=== PATIENT | female | born 1960 | race African-American/Black ===

== ENCOUNTER 2019-08-01 06:25 | Inpatient (IN) | payer MEDICAID ==
[~2019-08-01] VITALS: Ht 167.6 cm; Wt 70.8 kg
[~2019-08-01 06:25] MED LIST: ACT35 PO; ATOR10TA69 PO; DIVAL250 PO; FAMO20TA8 PO; MIRT15TA6 PO; PHEN100C12 PO
[2019-08-01] MEDS ORDERED: ACETAMINOPHEN 650MG SUPP PR STA (06:29)
[2019-08-01] MEDS ORDERED: SODIUM CHLORIDE 0.9% 500 ML IV ONE (06:47)
[2019-08-01] MEDS ORDERED: LEVOFLOXACIN 500MG PREMIX 100 ML IV ONE (07:00)
[2019-08-01 07:52] LABS: BASOPHILS % 0.3 % (0.0-2.0); EOSINOPHILS % 1.7 % (0.0-5.0); HEMATOCRIT. 33.9 % (36.0-48.0); HEMOGLOBIN. 10.9 g/dL (12.0-16.0); LYMPHOCYTES % 16.4 % (20.0-50.0); MEAN CORPUSCULAR HEMOGLOBIN 28.7 pg (28.0-32.0); MEAN CORPUSCULAR VOLUME 89.1 fL (81.0-99.0); MEAN PLATELET VOLUME 9.3 fl (7.4-10.4); MONOCYTES % 8.2 % (2.0-8.0); NEUTROPHILS % 73.4 % (40.0-76.0); PLATELET 456 x1000/uL (130-400); RED CELL DISTRIBUTION WIDTH 15.2 % (11.6-14.6)
[2019-08-01 07:58] LABS: CHLORIDE 135 mEq/L (98-107)
[2019-08-01 08:07] LABS: CREATINE KINASE 104 IU/L (26-192)
[2019-08-01 08:11] LABS: VALPROIC ACID < 3.0 ug/mL (50-100)
[2019-08-01 08:12] LABS: D-DIMER 21.77 mg/L FEU (<0.50); PROTHROMBIN TIME 10.8 sec (9.6-11.0)
[2019-08-01] MEDS ORDERED: PHENYTOIN SODIUM 1,000 MG in SODIUM CHLORIDE 0.9% 100 ML IV ONE (08:45)
[2019-08-01] MEDS ORDERED: CEFTRIAXONE 1 G PREMIX 50 ML IV NR (12:17)
[2019-08-01] MEDS ORDERED: AZITHROMYCIN 500 MG TABLET PO SCH (12:22)
[2019-08-01 12:31] LABS: HEPATITIS B SURFACE ANTIGEN NEGATIVE
[2019-08-01 13:01] LABS: HEPATITIS A AB IGM NEGATIVE (NEGATIVE)
[2019-08-01] MEDS: DEXTROSE 5% WATER 1,000 ML IV SCH ×2 (13:17→20:06)
[2019-08-01 13:53] LABS: CLARITY URINE CLEAR (CLEAR); COLOR URINE YELLOW (YELLOW); KETONES URINE NEGATIVE (NEGATIVE); LEUKOCYTE ESTERASE URINE 1+ (NEGATIVE); NITRITE URINE POSITIVE (NEGATIVE); OCCULT BLOOD URINE 2+ (NEGATIVE); PROTEIN URINE 1+ (NEGATIVE); SPECIFIC GRAVITY URINE 1.027 (1.005-1.030)
[2019-08-01 14:00] VITALS: BP 130/66
[2019-08-01 16:00] VITALS: BP 122/65
[2019-08-01] MEDS ORDERED: MOM PO (16:10)
[2019-08-01] MEDS ORDERED: RISP0.5T19 MT (16:10)
[2019-08-01] MEDS ORDERED: ALEN70TA68 MT (16:10)
[2019-08-01] MEDS ORDERED: AZITHROMYCIN 500 MG TABLET PO NR (17:00)
[2019-08-01] MEDS: ENOXAPARIN 60MG/0.6ML SYR SUBCUT SCH (18:11)
[2019-08-01 20:00] VITALS: BP 110/68
[2019-08-02] VITALS (7 sets, daily range): BP systolic 109–128; BP diastolic 60–73
[2019-08-02] MEDS: DEXTROSE 5% WATER 1,000 ML IV SCH ×3 (05:03→21:23)
[2019-08-02] MEDS: ENOXAPARIN 60MG/0.6ML SYR SUBCUT SCH ×2 (05:04→15:44)
[2019-08-02 06:39] LABS: HEMATOCRIT. 35.8 % (36.0-48.0); HEMOGLOBIN. 11.7 g/dL (12.0-16.0); MEAN CORPUSCULAR VOLUME 88.8 fL (81.0-99.0); RED BLOOD CELL COUNT 4.03 mill/uL (4.2-5.4)
[2019-08-02 06:40] LABS: BASOPHILS % 0.6 % (0.0-2.0); EOSINOPHILS % 3.3 % (0.0-5.0); LYMPHOCYTES % 12.3 % (20.0-50.0); MEAN PLATELET VOLUME 8.8 fl (7.4-10.4); MONOCYTES % 7.3 % (2.0-8.0); NEUTROPHILS % 76.5 % (40.0-76.0); PLATELET 443 x1000/uL (130-400); RED CELL DISTRIBUTION WIDTH 15.4 % (11.6-14.6)
[2019-08-02 07:18] LABS: CHLORIDE 128 mEq/L (98-107)
[2019-08-02 07:28] LABS: PHOSPHORUS 2.8 mg/dL (2.5-4.9)
[2019-08-02 07:30] LABS: CREATINE KINASE 132 IU/L (26-192)
[2019-08-02] MEDS ORDERED: CEFTRIAXONE 1 G PREMIX 50 ML IV SCH (09:00)
[2019-08-02] MEDS ORDERED: VANCOMYCIN 1250MG in DEXTROSE 5% WATER 250ML IV SCH (12:00)
[2019-08-02] MEDS ORDERED: MULT-1116 PO (14:18)
[2019-08-02] MEDS ORDERED: RISP0.5T19 MT ×2 (14:18→14:23)
[2019-08-02] MEDS ORDERED: ALEN70TA68 MT (14:23)
[2019-08-02] MEDS ORDERED: CA C-1 MT (14:23)
[2019-08-02] MEDS ORDERED: MOM MT (14:23)
[2019-08-02] MEDS ORDERED: ATOR10TA69 PO (14:23)
[2019-08-02] MEDS ORDERED: FAMO20TA8 PO (14:23)
[2019-08-02] MEDS ORDERED: KEPP500 MT (14:23)
[2019-08-02] MEDS ORDERED: LEVETIRACETAM 500MG TABLET PO SCH (15:00)
[2019-08-02] MEDS: RISPERIDONE 0.5MG TABLET GT SCH (15:45)
[2019-08-02] MEDS: AZITHROMYCIN 250 MG TABLET PO SCH (15:45)
[2019-08-02] MEDS: LEVETIRACETAM 500MG/5ML CUP PO SCH ×2 (15:45→21:20)
[2019-08-02] MEDS ORDERED: RISPERIDONE 0.5MG TABLET GT SCH (17:00)
[2019-08-02] MEDS: VANCOMYCIN 750 MG PREMIX 150 ML IV SCH (21:19)
[2019-08-02] MEDS: MAGNESIUM HYDROXIDE 400MG/5ML 30ML UDC GT SCH (21:19)
[2019-08-02] MEDS: FAMOTIDINE 20MG TABLET PO SCH (21:20)
[2019-08-02] MEDS: ATORVASTATIN CALCIUM 10MG TABLET PO SCH (21:21)
[2019-08-02] MEDS: ACETAMINOPHEN 325MG TABLET PO PRN (22:21)
[2019-08-03] VITALS: BP 143/65
[2019-08-03 04:00] VITALS: BP 120/63
[2019-08-03] MEDS: DEXTROSE 5% WATER 1,000 ML IV SCH (05:27)
[2019-08-03] MEDS: VANCOMYCIN 750 MG PREMIX 150 ML IV SCH ×2 (05:58→15:44)
[2019-08-03] MEDS: ENOXAPARIN 60MG/0.6ML SYR SUBCUT SCH ×2 (05:59→18:30)
[2019-08-03 07:54] LABS: BASOPHILS % 0.4 % (0.0-2.0); EOSINOPHILS % 1.7 % (0.0-5.0); HEMATOCRIT. 34.5 % (36.0-48.0); HEMOGLOBIN. 11.4 g/dL (12.0-16.0); LYMPHOCYTES % 15.2 % (20.0-50.0); MEAN CORPUSCULAR VOLUME 87.8 fL (81.0-99.0); MEAN PLATELET VOLUME 9.4 fl (7.4-10.4); MONOCYTES % 5.7 % (2.0-8.0); PLATELET 416 x1000/uL (130-400); RED BLOOD CELL COUNT 3.93 mill/uL (4.2-5.4); RED CELL DISTRIBUTION WIDTH 14.7 % (11.6-14.6)
[2019-08-03 08:00] VITALS: BP 114/77
[2019-08-03 08:00] LABS: CHLORIDE 115 mEq/L (98-107)
[2019-08-03 08:05] LABS: PHOSPHORUS 2.3 mg/dL (2.5-4.9)
[2019-08-03] MEDS: RISPERIDONE 0.5MG TABLET GT SCH (11:13)
[2019-08-03] MEDS: LEVETIRACETAM 500MG/5ML CUP PO SCH ×2 (11:13→22:18)
[2019-08-03] MEDS: CEFTRIAXONE 1 G PREMIX 50 ML IV SCH (11:14)
[2019-08-03] MEDS: AZITHROMYCIN 250 MG TABLET PO SCH (11:14)
[2019-08-03 12:00] VITALS: BP 117/65
[2019-08-03] MEDS ORDERED: POTASSIUM PHOS,M-BASIC-D-BASIC 20 MMOL in DEXT 5% WATER 243.3333 ML IV NR (15:00)
[2019-08-03 16:00] VITALS: BP 111/65
[2019-08-03 20:00] VITALS: BP 100/75
[2019-08-03] MEDS: MAGNESIUM HYDROXIDE 400MG/5ML 30ML UDC GT SCH (22:18)
[2019-08-03] MEDS: ATORVASTATIN CALCIUM 10MG TABLET PO SCH (22:18)
[2019-08-03] MEDS: FAMOTIDINE 20MG TABLET PO SCH (22:18)
[2019-08-04] VITALS: BP 119/68
[2019-08-04 04:00] VITALS: BP 121/75
[2019-08-04] MEDS: DEXTROSE 5% WATER 1,000 ML IV SCH ×2 (05:39→16:11)
[2019-08-04] MEDS: ENOXAPARIN 60MG/0.6ML SYR SUBCUT SCH ×2 (05:40→17:17)
[2019-08-04 08:00] VITALS: BP 141/81
[2019-08-04] MEDS: CEFTRIAXONE 1 G PREMIX 50 ML IV SCH (10:33)
[2019-08-04] MEDS: AZITHROMYCIN 250 MG TABLET PO SCH (10:33)
[2019-08-04] MEDS: RISPERIDONE 0.5MG TABLET GT SCH (10:33)
[2019-08-04] MEDS: LEVETIRACETAM 500MG/5ML CUP PO SCH ×2 (10:33→21:13)
[2019-08-04 12:00] VITALS: BP 100/58
[2019-08-04 12:15] LABS: BASOPHILS % 0.2 % (0.0-2.0); EOSINOPHILS % 1.6 % (0.0-5.0); HEMATOCRIT. 35.6 % (36.0-48.0); HEMOGLOBIN. 11.9 g/dL (12.0-16.0); LYMPHOCYTES % 10.5 % (20.0-50.0); MEAN CORPUSCULAR HEMOGLOBIN 29.4 pg (28.0-32.0); MEAN CORPUSCULAR VOLUME 88.2 fL (81.0-99.0); MEAN PLATELET VOLUME 9.6 fl (7.4-10.4); MONOCYTES % 4.3 % (2.0-8.0); NEUTROPHILS % 83.4 % (40.0-76.0); PLATELET 368 x1000/uL (130-400); RED BLOOD CELL COUNT 4.04 mill/uL (4.2-5.4); RED CELL DISTRIBUTION WIDTH 14.4 % (11.6-14.6)
[2019-08-04 13:52] LABS: CHLORIDE 111 mEq/L (98-107)
[2019-08-04 14:01] LABS: PHOSPHORUS 2.6 mg/dL (2.5-4.9)
[2019-08-04 16:00] VITALS: BP 141/61
[2019-08-04] MEDS ORDERED: POTASSIUM CHLORIDE 20MEQ TABLET SR PO NR (16:55)
[2019-08-04] MEDS ORDERED: VANCOMYCIN 1,000 MG in DEXT 5% WATER 250 ML IV NR (18:30)
[2019-08-04 20:00] VITALS: BP 121/77
[2019-08-04] MEDS: ATORVASTATIN CALCIUM 10MG TABLET PO SCH (21:13)
[2019-08-04] MEDS: FAMOTIDINE 20MG TABLET PO SCH (21:13)
[2019-08-04] MEDS: MAGNESIUM HYDROXIDE 400MG/5ML 30ML UDC GT SCH (21:13)
[2019-08-05] VITALS: BP 123/55
[2019-08-05] MEDS ORDERED: VANCOMYCIN 750 MG in DEXT 5% WATER 250 ML IV SCH (03:00)
[2019-08-05 04:00] VITALS: BP 112/69
[2019-08-05] MEDS: DEXTROSE 5% WATER 1,000 ML IV SCH ×2 (05:31→17:20)
[2019-08-05] MEDS: ENOXAPARIN 60MG/0.6ML SYR SUBCUT SCH ×2 (05:37→17:20)
[2019-08-05 08:00] VITALS: BP 112/68
[2019-08-05] MEDS: LEVETIRACETAM 500MG/5ML CUP PO SCH ×2 (09:19→21:25)
[2019-08-05] MEDS: AZITHROMYCIN 250 MG TABLET PO SCH (09:19)
[2019-08-05] MEDS: RISPERIDONE 0.5MG TABLET GT SCH (09:19)
[2019-08-05] MEDS: CEFTRIAXONE 1 G PREMIX 50 ML IV SCH (09:19)
[2019-08-05] MEDS ORDERED: VANCOMYCIN 750 MG PREMIX 150 ML IV SCH (11:00)
[2019-08-05 12:00] VITALS: BP 105/50
[2019-08-05 16:00] VITALS: BP 102/62
[2019-08-05 20:00] VITALS: BP 112/63
[2019-08-05] MEDS: MAGNESIUM HYDROXIDE 400MG/5ML 30ML UDC GT SCH (21:25)
[2019-08-05] MEDS: FAMOTIDINE 20MG TABLET PO SCH (21:25)
[2019-08-05] MEDS: ATORVASTATIN CALCIUM 10MG TABLET PO SCH (21:25)
[2019-08-06] VITALS: BP 134/68
[2019-08-06] MEDS: ACETAMINOPHEN 325MG TABLET PO PRN ×2 (01:09→22:36)
[2019-08-06 04:00] VITALS: BP 113/71
[2019-08-06] MEDS: ENOXAPARIN 60MG/0.6ML SYR SUBCUT SCH (06:16)
[2019-08-06 08:11] VITALS: BP 138/66
[2019-08-06] MEDS: RISPERIDONE 0.5MG TABLET GT SCH (08:13)
[2019-08-06] MEDS: LEVETIRACETAM 500MG/5ML CUP PO SCH ×2 (08:13→21:50)
[2019-08-06 12:02] VITALS: BP 123/70
[2019-08-06] MEDS: DEXTROSE 5% WATER 1,000 ML IV SCH ×2 (13:52→21:51)
[2019-08-06 16:16] VITALS: BP 118/63
[2019-08-06] MEDS: ENOXAPARIN 80MG/0.8ML SYR SUBCUT SCH (17:44)
[2019-08-06 20:00] VITALS: BP 123/59
[2019-08-06] MEDS: FAMOTIDINE 20MG TABLET PO SCH (21:50)
[2019-08-06] MEDS: MAGNESIUM HYDROXIDE 400MG/5ML 30ML UDC GT SCH (21:50)
[2019-08-06] MEDS: ATORVASTATIN CALCIUM 10MG TABLET PO SCH (21:50)
[2019-08-07] VITALS: BP 125/75
[2019-08-07 04:00] VITALS: BP 127/79
[2019-08-07 08:05] VITALS: BP 130/64
[2019-08-07] MEDS: RISPERIDONE 0.5MG TABLET GT SCH (08:15)
[2019-08-07] MEDS: LEVETIRACETAM 500MG/5ML CUP PO SCH ×2 (08:15→20:38)
[2019-08-07] MEDS: ENOXAPARIN 80MG/0.8ML SYR SUBCUT SCH ×2 (08:16→20:39)
[2019-08-07 12:00] VITALS: BP 132/61
[2019-08-07 16:20] VITALS: BP 126/74
[2019-08-07] MEDS: DEXTROSE 5% WATER 1,000 ML IV SCH (16:46)
[2019-08-07 18:07] LABS: HEMATOCRIT. 32.1 % (36.0-48.0); HEMOGLOBIN. 10.5 g/dL (12.0-16.0); MEAN CORPUSCULAR HEMOGLOBIN 28.8 pg (28.0-32.0); MEAN CORPUSCULAR VOLUME 87.9 fL (81.0-99.0); MEAN PLATELET VOLUME 8.6 fl (7.4-10.4); PLATELET 606 x1000/uL (130-400); RED BLOOD CELL COUNT 3.65 mill/uL (4.2-5.4); RED CELL DISTRIBUTION WIDTH 14.9 % (11.6-14.6)
[2019-08-07 18:11] LABS: CHLORIDE 101 mEq/L (98-107)
[2019-08-07 18:28] LABS: PLATELET ESTIMATE INCREASED
[2019-08-07 20:00] VITALS: BP 120/68
[2019-08-07] MEDS: MAGNESIUM HYDROXIDE 400MG/5ML 30ML UDC GT SCH (20:38)
[2019-08-07] MEDS: ATORVASTATIN CALCIUM 10MG TABLET PO SCH (20:38)
[2019-08-07] MEDS: FAMOTIDINE 20MG TABLET PO SCH (20:38)
[2019-08-08] VITALS: BP 119/69
[2019-08-08] MEDS: DEXTROSE 5% WATER 1,000 ML IV SCH (00:11)
[2019-08-08 04:00] VITALS: BP 117/62
[2019-08-08] MEDS: ACETAMINOPHEN 325MG TABLET PO PRN (05:04)
[2019-08-08 08:00] VITALS: BP 129/75
[2019-08-08] MEDS: ENOXAPARIN 80MG/0.8ML SYR SUBCUT SCH ×2 (09:36→21:59)
[2019-08-08] MEDS: RISPERIDONE 0.5MG TABLET GT SCH (09:36)
[2019-08-08] MEDS: LEVETIRACETAM 500MG/5ML CUP PO SCH ×2 (09:36→21:59)
[2019-08-08 12:00] VITALS: BP 139/87
[2019-08-08] MEDS: PIPERACILLIN/TAZOBACTAM 3.375 G in DEXT 5% WATER 100 ML IV SCH ×2 (14:33→21:59)
[2019-08-08 16:00] VITALS: BP 110/57
[2019-08-08 20:00] VITALS: BP 124/74
[2019-08-08] MEDS: FAMOTIDINE 20MG TABLET PO SCH (21:59)
[2019-08-08] MEDS: ATORVASTATIN CALCIUM 10MG TABLET PO SCH (21:59)
[2019-08-08] MEDS: MAGNESIUM HYDROXIDE 400MG/5ML 30ML UDC GT SCH (21:59)
[2019-08-09] VITALS: BP 129/71
[2019-08-09 04:00] VITALS: BP 126/63
[2019-08-09] MEDS: PIPERACILLIN/TAZOBACTAM 3.375 G in DEXT 5% WATER 100 ML IV SCH ×4 (05:36→20:50)
[2019-08-09 08:00] VITALS: BP 128/67
[2019-08-09] MEDS: LEVETIRACETAM 500MG/5ML CUP PO SCH ×2 (08:53→21:28)
[2019-08-09] MEDS: RISPERIDONE 0.5MG TABLET GT SCH (08:53)
[2019-08-09] MEDS: ENOXAPARIN 80MG/0.8ML SYR SUBCUT SCH ×2 (08:53→21:30)
[2019-08-09] MEDS ORDERED: FUROSEMIDE 40MG/4ML VIAL IVP SCH (11:00)
[2019-08-09] MEDS: METHYLPREDNISOLONE SOD SUCC 40 MG/ML VIAL IV SCH ×2 (11:12→21:28)
[2019-08-09 12:00] VITALS: BP 135/81
[2019-08-09] MEDS: ALBUTEROL 6.7GM HFA INHALER ORI SCH ×2 (12:42→17:42)
[2019-08-09 16:00] VITALS: BP 108/65
[2019-08-09 20:00] VITALS: BP_SYST 115; BP_SYST 118; BP_DIAS 66; BP_DIAS 73
[2019-08-09] MEDS: FAMOTIDINE 20MG TABLET PO SCH (21:28)
[2019-08-09] MEDS: MAGNESIUM HYDROXIDE 400MG/5ML 30ML UDC GT SCH (21:28)
[2019-08-09] MEDS: ATORVASTATIN CALCIUM 10MG TABLET PO SCH (21:28)
[2019-08-10] VITALS: BP 115/65
[2019-08-10] MEDS: ALBUTEROL 6.7GM HFA INHALER ORI SCH ×4 (00:47→18:02)
[2019-08-10 04:00] VITALS: BP 124/65
[2019-08-10 04:43] LABS: CHLORIDE 100 mEq/L (98-107)
[2019-08-10 05:03] LABS: BASOPHILS % 0.1 % (0.0-2.0); EOSINOPHILS % 0.2 % (0.0-5.0); HEMOGLOBIN. 9.9 g/dL (12.0-16.0); LYMPHOCYTES % 7.4 % (20.0-50.0); MEAN CORPUSCULAR HEMOGLOBIN 28.7 pg (28.0-32.0); MEAN CORPUSCULAR VOLUME 87.1 fL (81.0-99.0); MEAN PLATELET VOLUME 8.8 fl (7.4-10.4); MONOCYTES % 4.7 % (2.0-8.0); NEUTROPHILS % 87.6 % (40.0-76.0); PLATELET 745 x1000/uL (130-400); RED BLOOD CELL COUNT 3.44 mill/uL (4.2-5.4); RED CELL DISTRIBUTION WIDTH 14.5 % (11.6-14.6)
[2019-08-10] MEDS: PIPERACILLIN/TAZOBACTAM 3.375 G in DEXT 5% WATER 100 ML IV SCH ×4 (06:13→21:15)
[2019-08-10 08:00] VITALS: BP 117/71
[2019-08-10] MEDS: METHYLPREDNISOLONE SOD SUCC 40 MG/ML VIAL IV SCH ×2 (09:00→21:14)
[2019-08-10] MEDS: RISPERIDONE 0.5MG TABLET GT SCH (10:03)
[2019-08-10] MEDS: ENOXAPARIN 80MG/0.8ML SYR SUBCUT SCH ×2 (10:04→21:45)
[2019-08-10] MEDS: LEVETIRACETAM 500MG/5ML CUP PO SCH (10:04)
[2019-08-10 12:00] VITALS: BP 118/60
[2019-08-10] MEDS: ACETAMINOPHEN 325MG TABLET PO PRN (13:19)
[2019-08-10] MEDS ORDERED: LORAZEPAM 2MG/ML CPJ IV SCH (14:30)
[2019-08-10 16:00] VITALS: BP 104/70
[2019-08-10 20:00] VITALS: BP 126/73
[2019-08-11] VITALS: BP 132/75
[2019-08-11] MEDS: FAMOTIDINE 20MG TABLET PO SCH ×2 (00:51→21:24)
[2019-08-11] MEDS: LEVETIRACETAM 500MG/5ML CUP PO SCH ×3 (00:51→21:24)
[2019-08-11] MEDS: ATORVASTATIN CALCIUM 10MG TABLET PO SCH ×2 (00:51→21:24)
[2019-08-11] MEDS: MAGNESIUM HYDROXIDE 400MG/5ML 30ML UDC GT SCH ×2 (00:59→21:24)
[2019-08-11] MEDS: SODIUM CHLORIDE 45ML SPRAY NS SCH ×4 (01:16→18:00)
[2019-08-11] MEDS: PIPERACILLIN/TAZOBACTAM 3.375 G in DEXT 5% WATER 100 ML IV SCH ×3 (02:00→14:00)
[2019-08-11 04:00] VITALS: BP 120/71
[2019-08-11] MEDS: ALBUTEROL 6.7GM HFA INHALER ORI SCH ×5 (05:41→23:39)
[2019-08-11 08:00] VITALS: BP 112/70
[2019-08-11] MEDS: METHYLPREDNISOLONE SOD SUCC 40 MG/ML VIAL IV SCH (09:00)
[2019-08-11] MEDS: ENOXAPARIN 80MG/0.8ML SYR SUBCUT SCH ×2 (09:39→21:25)
[2019-08-11] MEDS: RISPERIDONE 0.5MG TABLET GT SCH (10:02)
[2019-08-11] MEDS ORDERED: LORAZEPAM 2MG/ML CPJ IV PRN (11:15)
[2019-08-11 12:00] VITALS: BP 100/64
[2019-08-11] MEDS ORDERED: LORAZEPAM 2MG/ML CPJ IM PRN (15:00)
[2019-08-11 16:00] VITALS: BP 126/80
[2019-08-11 20:00] VITALS: BP 126/71
[2019-08-12] VITALS: BP 112/65
[2019-08-12] MEDS: SODIUM CHLORIDE 45ML SPRAY NS SCH ×5 (00:13→23:51)
[2019-08-12 04:00] VITALS: BP 117/60
[2019-08-12] MEDS: ALBUTEROL 6.7GM HFA INHALER ORI SCH ×4 (06:46→23:44)
[2019-08-12 08:00] VITALS: BP_SYST 109; BP_SYST 148; BP_DIAS 58; BP_DIAS 78
[2019-08-12] MEDS ORDERED: LIDOCAINE HCL 1% 20ML VIAL (Pyxis) INJ ONE (08:00)
[2019-08-12] MEDS: PIPERACILLIN/TAZOBACTAM 3.375 G in DEXT 5% WATER 100 ML IV SCH ×4 (08:00→20:28)
[2019-08-12] MEDS: METHYLPREDNISOLONE SOD SUCC 40 MG/ML VIAL IV SCH ×3 (08:13→20:55)
[2019-08-12] MEDS: ENOXAPARIN 80MG/0.8ML SYR SUBCUT SCH ×2 (09:24→20:56)
[2019-08-12] MEDS: RISPERIDONE 0.5MG TABLET GT SCH (09:24)
[2019-08-12] MEDS: LEVETIRACETAM 500MG/5ML CUP PO SCH ×2 (09:24→20:54)
[2019-08-12 12:00] VITALS: BP 118/62
[2019-08-12 16:00] VITALS: BP 131/63
[2019-08-12 20:00] VITALS: BP 123/52
[2019-08-12] MEDS: FAMOTIDINE 20MG TABLET PO SCH (20:55)
[2019-08-12] MEDS: ATORVASTATIN CALCIUM 10MG TABLET PO SCH (20:55)
[2019-08-12] MEDS: MAGNESIUM HYDROXIDE 400MG/5ML 30ML UDC GT SCH (20:57)
[2019-08-13] VITALS: BP 119/67
[2019-08-13] MEDS: PIPERACILLIN/TAZOBACTAM 3.375 G in DEXT 5% WATER 100 ML IV SCH ×4 (01:59→22:35)
[2019-08-13 04:00] VITALS: BP 110/68
[2019-08-13] MEDS: SODIUM CHLORIDE 45ML SPRAY NS SCH ×5 (05:58→22:59)
[2019-08-13] MEDS: ALBUTEROL 6.7GM HFA INHALER ORI SCH ×5 (06:00→22:59)
[2019-08-13 08:00] VITALS: BP 117/59
[2019-08-13] MEDS: METHYLPREDNISOLONE SOD SUCC 40 MG/ML VIAL IV SCH ×2 (09:27→22:35)
[2019-08-13] MEDS: ENOXAPARIN 80MG/0.8ML SYR SUBCUT SCH ×2 (09:27→22:36)
[2019-08-13] MEDS: RISPERIDONE 0.5MG TABLET GT SCH (09:27)
[2019-08-13] MEDS: LEVETIRACETAM 500MG/5ML CUP PO SCH ×2 (09:27→22:35)
[2019-08-13 12:00] VITALS: BP 117/69
[2019-08-13 16:00] VITALS: BP 120/74
[2019-08-13 20:00] VITALS: BP 123/68
[2019-08-13] MEDS: MAGNESIUM HYDROXIDE 400MG/5ML 30ML UDC GT SCH (22:35)
[2019-08-13] MEDS: FAMOTIDINE 20MG TABLET PO SCH (22:35)
[2019-08-13] MEDS: ATORVASTATIN CALCIUM 10MG TABLET PO SCH (22:58)
[2019-08-14] VITALS: BP 111/61
[2019-08-14 04:00] VITALS: BP 120/63
[2019-08-14] MEDS: ALBUTEROL 6.7GM HFA INHALER ORI SCH ×3 (05:30→17:25)
[2019-08-14] MEDS: SODIUM CHLORIDE 45ML SPRAY NS SCH ×3 (05:30→17:25)
[2019-08-14 08:00] VITALS: BP 109/62
[2019-08-14] MEDS: METHYLPREDNISOLONE SOD SUCC 40 MG/ML VIAL IV SCH ×2 (09:04→21:54)
[2019-08-14] MEDS: RISPERIDONE 0.5MG TABLET GT SCH (09:04)
[2019-08-14] MEDS: LEVETIRACETAM 500MG/5ML CUP PO SCH ×2 (09:04→21:53)
[2019-08-14] MEDS: ENOXAPARIN 80MG/0.8ML SYR SUBCUT SCH ×2 (09:04→21:56)
[2019-08-14 12:00] VITALS: BP 133/74
[2019-08-14 16:00] VITALS: BP 114/66
[2019-08-14 20:00] VITALS: BP 112/62
[2019-08-14] MEDS: MAGNESIUM HYDROXIDE 400MG/5ML 30ML UDC GT SCH (21:53)
[2019-08-14] MEDS: ATORVASTATIN CALCIUM 10MG TABLET PO SCH (21:53)
[2019-08-14] MEDS: FAMOTIDINE 20MG TABLET PO SCH (21:53)
[2019-08-15] VITALS: BP 111/64
[2019-08-15] MEDS: SODIUM CHLORIDE 45ML SPRAY NS SCH ×4 (01:38→17:21)
[2019-08-15] MEDS: ALBUTEROL 6.7GM HFA INHALER ORI SCH ×4 (06:34→17:21)
[2019-08-15 08:00] VITALS: BP 105/57
[2019-08-15] MEDS: RISPERIDONE 0.5MG TABLET GT SCH (08:52)
[2019-08-15] MEDS: LEVETIRACETAM 500MG/5ML CUP PO SCH ×2 (08:52→21:31)
[2019-08-15] MEDS: ENOXAPARIN 80MG/0.8ML SYR SUBCUT SCH ×2 (08:52→21:32)
[2019-08-15] MEDS: METHYLPREDNISOLONE SOD SUCC 40 MG/ML VIAL IV SCH ×2 (08:56→21:32)
[2019-08-15 12:00] VITALS: BP 105/64
[2019-08-15 16:00] VITALS: BP 114/66
[2019-08-15 20:00] VITALS: BP 113/65
[2019-08-15] MEDS: FAMOTIDINE 20MG TABLET PO SCH (21:32)
[2019-08-15] MEDS: MAGNESIUM HYDROXIDE 400MG/5ML 30ML UDC GT SCH (21:32)
[2019-08-15] MEDS: ATORVASTATIN CALCIUM 10MG TABLET PO SCH (21:32)
[2019-08-16] VITALS: BP 120/61
[2019-08-16] MEDS: ALBUTEROL 6.7GM HFA INHALER ORI SCH ×3 (00:51→12:17)
[2019-08-16] MEDS: SODIUM CHLORIDE 45ML SPRAY NS SCH ×3 (00:51→12:17)
[2019-08-16 04:30] VITALS: BP 132/70
[2019-08-16 08:00] VITALS: BP 141/74
[2019-08-16] MEDS: METHYLPREDNISOLONE SOD SUCC 40 MG/ML VIAL IV SCH (08:26)
[2019-08-16] MEDS: RISPERIDONE 0.5MG TABLET GT SCH (08:26)
[2019-08-16] MEDS: ENOXAPARIN 80MG/0.8ML SYR SUBCUT SCH (08:27)
[2019-08-16] MEDS: LEVETIRACETAM 500MG/5ML CUP PO SCH (08:27)
[2019-08-16 10:27] VITALS: BP 141/74
[2019-08-16 12:00] VITALS: BP 128/68
== END 2019-08-16 13:40 | DRG 720 ==
LOC: ER 06:25 → 7WST 06:55 → EDBEDREQTM 07:02 → EDBEDREQ 07:02 → ENRESERV 14:17
PROVIDERS: ADMIT Internal Medicine; ATTEND Internal Medicine
PROC: 05HY33Z Insertion of Infusion Device into Upper Vein, Percutaneous Approach (ICD-10-PCS; principal; 2019-08-12)
PROC: B54DZZA Ultrasonography of Bilateral Lower Extremity Veins, Guidance (ICD-10-PCS; 2019-08-12)
DX: A41.89 Other specified sepsis (principal); U07.1 COVID-19; J96.01 Acute respiratory failure with hypoxia; E43 Unspecified severe protein-calorie malnutrition; E87.0 Hyperosmolality and hypernatremia; D68.59 Other primary thrombophilia; E87.2 Acidosis; E83.39 Other disorders of phosphorus metabolism; F03.90 Unspecified dementia, unspecified severity, without behavioral disturbance, psychotic disturbance, mood disturbance, and anxiety; J12.89 Other viral pneumonia; E86.0 Dehydration; D64.9 Anemia, unspecified; E78.5 Hyperlipidemia, unspecified; N39.0 Urinary tract infection, site not specified; E87.1 Hypo-osmolality and hyponatremia; R74.0 Nonspecific elevation of levels of transaminase and lactic acid dehydrogenase [LDH]; R62.50 Unspecified lack of expected normal physiological development in childhood; K94.23 Gastrostomy malfunction; Y83.8 Other surgical procedures as the cause of abnormal reaction of the patient, or of later complication, without mention of misadventure at the time of the procedure; G40.909 Epilepsy, unspecified, not intractable, without status epilepticus; M81.0 Age-related osteoporosis without current pathological fracture; I10 Essential (primary) hypertension; D72.810 Lymphocytopenia; E87.8 Other disorders of electrolyte and fluid balance, not elsewhere classified; K21.9 Gastro-esophageal reflux disease without esophagitis; R13.10 Dysphagia, unspecified; Z79.83 Long term (current) use of bisphosphonates; Z68.25 Body mass index [BMI] 25.0-25.9, adult; Y92.89 Other specified places as the place of occurrence of the external cause
CPT/HCPCS: 36415; 71045; 76937; 80048; 80053; 80165; 80185; 80202; 81003; 82550; 82728; 83036; 83605; 83615; 83735; 83880; 84100; 84145; 84484; 85025; 85379; 85384; 86140; 86705; 86709; 86803; 87340; 87635; 87804; 93005; 99291; C1725; J0696; J1165; J1650; J1940; J1956; J2060; J2543; J2920; J3370; J3490; J7040; J7050; J7060; J7070; U0003-CS